=== PATIENT | male | born 1950 | race Caucasian/White ===

== ENCOUNTER 2017-11-19 07:02 | Day surgery (SDC) | payer MEDICARE ==
[2017-11-19] MEDS: NS 1,000 ML IV (07:26)
[2017-11-19] MEDS ORDERED: PROPOFOL 200 MG/20 ML VIAL As Ordered ×2 (08:16→08:23)
[2017-11-19] MEDS ORDERED: LIDOCAINE 2% INJ 100 MG/5 ML SDV (FOR ANES.) As Ordered (08:16)
== END 2017-11-19 09:04 | disposition home or self-care (01) ==
LOC: M OPP 07:02
DX: Z12.11 Encounter for screening for malignant neoplasm of colon (principal); Z86.010 Personal history of colon polyps; D12.3 Benign neoplasm of transverse colon; D12.0 Benign neoplasm of cecum; D12.5 Benign neoplasm of sigmoid colon; I10 Essential (primary) hypertension; E78.5 Hyperlipidemia, unspecified; Z86.711 Personal history of pulmonary embolism; M19.90 Unspecified osteoarthritis, unspecified site; Z98.1 Arthrodesis status; Z87.891 Personal history of nicotine dependence; Z79.82 Long term (current) use of aspirin; Z79.899 Other long term (current) drug therapy; Z80.8 Family history of malignant neoplasm of other organs or systems; Z80.6 Family history of leukemia
CPT/HCPCS: 45385

== ENCOUNTER → 2021-01-02 | Outpatient (CLI) | payer MEDICARE ==
[~2021-01-02] MED LIST: ASPI-255 PO; LISI10TA22 PO; MULT1TAB10 PO; SIMV20TA22 PO; VITMTA PO
== END ==
LOC: M LABSMTC 09:34
PROVIDERS: ATTEND Anesthesiology
DX: Z01.812 Encounter for preprocedural laboratory examination (principal); Z20.822 Contact with and (suspected) exposure to COVID-19

== ENCOUNTER 2021-01-07 10:00 | Day surgery (SDC) | payer MEDICARE ==
[~2021-01-07] VITALS: Ht 170.2 cm; Wt 84.8 kg
[~2021-01-07 10:00] MED LIST changes: +NS 1,000 ML IV ONE
[2021-01-07] MEDS ORDERED: CALCCHW4 PO (10:27)
[2021-01-07] MEDS ORDERED: propofoL 200 MG/20 ML VIAL As Ordered ONE (11:59)
[2021-01-07] MEDS ORDERED: LIDOCAINE 2% 100MG/5ML SDV (FOR ANES.) As Ordered ONE (11:59)
--- NOTE | 2021-01-07 11:59 | ROOR ---
Patient Name: Kwame Patricia Procedure Date: 01/07/2021 11:34 AM Date of : 1950 Age: 70 Room: [facility] Gender: Male Note Status: Finalized Procedure: Colonoscopy Indications: High risk colon cancer surveillance: Personal history of colonic polyps Providers: Isaac MUSA MD Referring MD: Matilda Flores MD Requesting Provider: Medicines: Monitored Anesthesia Care Complications: No immediate complications. Procedure: Pre-Anesthesia Assessment: - The heart rate, respiratory rate, oxygen saturations, blood pressure, adequacy of pulmonary ventilation, and response to care were monitored throughout the procedure. The Colonoscope was introduced through the anus and advanced to the terminal ileum, with identification of the appendiceal orifice and IC valve. The colonoscopy was somewhat difficult due to unsatisfactory bowel prep. Successful completion of the procedure was aided by lavage. The patient tolerated the procedure well. The quality of the bowel preparation was fair. Findings: The perianal and digital rectal examinations were normal. A small post polypectomy scar was found in the cecum. There was no residual polypoid tissue. A diminutive polyp was found in the cecum. The polyp was sessile. The polyp was removed with a jumbo cold forceps. Resection and retrieval were complete. Mild sigmoid diverticulosis and small internal hemorrhoids. The exam was otherwise without abnormality on direct and retroflexion views. Impression: - Preparation of the colon was fair. - Post-polypectomy scar in the cecum. - One diminutive polyp in the cecum, removed with a jumbo cold forceps. Resected and retrieved. - Mild sigmoid diverticulosis and small internal hemorrhoids. - The examination was otherwise normal on direct and retroflexion views. Recommendation: - Repeat colonoscopy in 3 years because the bowel preparation was suboptimal. - Repeat colonoscopy in 3 years for adenoma surveillance. Procedure Code(s): --- Professional --- 06158, Colonoscopy, flexible; with biopsy, single or multiple Diagnosis Code(s): --- Professional --- K63.5, Polyp of colon Z98.890, Other specified postprocedural states Z86.010, Personal history of colonic polyps CPT copyright 2019 [employer]. All rights reserved. The codes documented in this report are preliminary and upon director of strategic partnerships review may be revised to meet current compliance requirements. Isaac Musa MD Isaac MUSA MD 01/07/2021 12:00:29 PM Electronically signed by Isaac MUSA MD Number of Addenda: 0 Note Initiated On: 01/07/2021 11:34 AM Estimated Blood Loss: Estimated blood loss: none.
[2021-01-07 12:40] VITALS: BP 133/81
== END 2021-01-07 12:47 | disposition home or self-care (01) ==
LOC: M OPP 10:00
PROVIDERS: ATTEND Internal Medicine Gastroenterology
DX: Z12.11 Encounter for screening for malignant neoplasm of colon (principal); Z86.010 Personal history of colon polyps; Z98.890 Other specified postprocedural states; D12.0 Benign neoplasm of cecum; K57.30 Diverticulosis of large intestine without perforation or abscess without bleeding; K64.8 Other hemorrhoids; I10 Essential (primary) hypertension; Z79.82 Long term (current) use of aspirin; Z79.899 Other long term (current) drug therapy; Z86.718 Personal history of other venous thrombosis and embolism

== ENCOUNTER 2024-03-15 09:24 | Day surgery (SDC) | payer MEDICARE ==
[~2024-03-15] VITALS: Ht 170.2 cm; Wt 88.4 kg
[~2024-03-15 09:24] MED LIST changes: +CALCCHW4 PO; +THERTAB52 PO
[2024-03-15] MEDS ORDERED: propofoL 200 MG/20 ML VIAL As Ordered ONE (10:56)
[2024-03-15] MEDS ORDERED: LIDOCAINE 2% 100MG/5ML SDV (FOR ANES.) As Ordered ONE (10:56)
[2024-03-15 11:32] VITALS: TEMP 97.7
[2024-03-15 11:48] VITALS: BP 119/74; O2SAT 95
[2024-03-15] MEDS ORDERED: SIMETHICONE 40MG/0.6ML DROPS 30ML As Ordered ONE (13:20)
== END 2024-03-15 11:56 | disposition home or self-care (01) ==
LOC: M OPP 09:24
PROVIDERS: ATTEND Surgery
DX: Z12.11 Encounter for screening for malignant neoplasm of colon (principal); D12.5 Benign neoplasm of sigmoid colon; K64.0 First degree hemorrhoids; Z86.010 Personal history of colon polyps; I10 Essential (primary) hypertension; E78.00 Pure hypercholesterolemia, unspecified; Z79.899 Other long term (current) drug therapy; Z79.82 Long term (current) use of aspirin; Z87.891 Personal history of nicotine dependence